=== PATIENT | female | born 1985 | race Two or more races ===

== ENCOUNTER 2022-11-04 11:56 | Emergency (ER) | payer MEDICAID, OTHER ==
[~2022-11-04] VITALS: Ht 152.4 cm; Wt 58.1 kg
[2022-11-04] MEDS ORDERED: ETOMIDATE (2MG/ML) 20ML VIAL IV ONE ×3 (12:15→13:15)
[2022-11-04 13:59] VITALS: BP 114/63
== END 2022-11-04 14:04 | disposition home or self-care (01) ==
LOC: ER 11:56
DX: S43.004A Unspecified dislocation of right shoulder joint, initial encounter (principal); X58.XXXA Exposure to other specified factors, initial encounter; Y93.89 Activity, other specified; Y92.89 Other specified places as the place of occurrence of the external cause; Y99.8 Other external cause status
CPT/HCPCS: 23650; 73020; 73030

== ENCOUNTER 2025-03-04 09:19 | Emergency (ER) | payer MEDICAID ==
[~2025-03-04] VITALS: Ht 154.9 cm; Wt 60.0 kg
--- NOTE | 2025-03-04 09:34 | ED.PDOC ---
Musculoskeletal HPI Comments 39 year old female presents to the ED for the c/c of Right Shoulder pain. Pt states she was at home reaching for a "goose egg" when she experienced a mechanical fall and landed on her right shoulder. Pt states that she is currently unable to move her extremity as a whole due to her pain. No other associated symptoms, modifiers, recent injuries or sick contacts present at this time. Chief Complaint: Upper Extremity Time Seen by MD: 09:31 Primary Care Provider: Johnny. Reviewed Notes: Nurses Notes, Medications, Allergies Allergies: Coded Allergies: NO KNOWN ALLERGIES (Unverified , 11/04/22) Information Source: Patient Mode of Arrival: Ambulatory Location: Right Extremity Location: Shoulder Timing: Hours Prehospital treatment: None Severity: Moderate Able to Move Extremity: No Bear Weight: No Pain: Moderate Hand Dominance: Right Mechanism: Twisting Circumstances: Fall Onset of Symptoms: After Trauma Symptoms: Swelling, Pain DVT Risk Factors: NONE Last Tetanus: Unknown Associated signs and symptoms: Shoulder pain Past Medical History PAST MEDICAL HISTORY: Denies 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 Family History Family History: Reviewed,noncontributory to illness Social History Smoker: Non-Smoker Alcohol: Denies ETOH Use Drugs: Denies Drug Use Lives In: Home Constitutional: denies: chills, diaphoresis, fatigue, fever, malaise, sweats, weakness, others EENTM: denies: blurred vision, double vision, ear bleeding, ear discharge, ear drainage, ear pain, ear ringing, eye pain, eye redness, hearing loss, mouth pain, mouth swelling, nasal discharge, nose bleeding, nose congestion, nose pain, photophobia, tearing, throat pain, throat swelling, voice changes, others Respiratory: denies: cough, hemoptysis, orthopnea, SOB at rest, shortness of breath, SOB with excertion, stridor, wheezing, others Cardiovascular: denies: chest pain, dizzy spells, diaphoresis, Dyspnea on exertion, edema, irregular heart beat, left arm pain, lightheadedness, palpitations, PND, syncope, others Gastrointestinal: denies: abdomen distended, abdominal pain, blood streaked bowels, constipated, diarrhea, dysphagia, difficulty swallowing, hematemesis, melena, nausea, poor appetite, poor fluid intake, rectal bleeding, rectal pain, vomiting, others Genitourinary: denies: abnormal vagina bleeding, burning, dyspareunia, dysuria, flank pain, frequency, hematuria, incontinence, pain, , vagina discharge, urgency, others Neurological: denies: dizziness, fainting, headache, left sided numbness, left sided weakness, numbness, paresthesia, pre-existing deficit, right sided numbness, right sided weakness, seizure, speech problems, tingling, tremors, weakness, others Musculoskeletal: reports: others (Right shoulder pain); denies: back pain, gout, joint pain, joint swelling, muscle pain, muscle stiffness, neck pain Integumetry: denies: bruises, change in color, change in hair/nails, dryness, laceration, lesions, lumps, rash, wounds, others Allergic/Immunocompromised: denies: Difficulty Healing, Frequent Infections, Hives, Itching, others Hematologic/Lymphatic: denies: anemia, blood clots, easy bleeding, easy bruising, swollen glands, others Endocrine: denies: excessive hunger, excessive sweating, excessive thirst, excessive urination, flushing, intolerance to cold, intolerance to heat, unexplained weight gain, unexplained weight loss, others Psychiatric: denies: anxiety, bipolar disorder, depression, hopeless, panic disorder, schizophrenia, sleepless, suicidal, others All Other Systems: Reviewed and Negative Physical Exam General Appearance: Mild Distress, Normal HEENT: Normal ENT Inspection, Pharynx Normal, TMs Normal Neck: Full Range of Motion, Non-Tender, Normal Respiratory: Chest Non-Tender, Lungs Clear, No Accessory Muscle Use, No Respiratory Distress, Normal Breath Sounds Cardiovascular: No Edema, No JVD, No Murmur, Normal Peripheral Pulses, Regular Rate/Rhythm Breast Exam: Deferred Gastrointestinal: Non Tender, No Pulsatile Mass, Normal Bowel Sounds, Soft Genitalia: Deferred Pelvic: Deferred Rectal: Deferred Extremities: No calf tenderness, Normal capillary refill, Normal inspection, Normal range of motion, Non-tender, No pedal edema Musculoskeletal : Location: Right Extremity Location: Shoulder (noticable deformity to right shoulder) Apperance: Normal Neurologic: Alert, No Motor Deficits, Normal Mood, No Sensory Deficits Cerebellar Function: Normal Reflexes: Normal Skin: Dry, Normal Color, Warm Lymphatic: No Adenopathy Was a procedure done? Was a procedure done?: Yes Sedation Sedation?: Yes Informed consent obtained: Yes Sedation start time: 13:00 Sedation end time: 13:30 Sedation total time: 30 min Reduction Indication: Dislocation Sedation: Consents obtained, Sedation as ordered Intra-articular anesthetic teddy: No Post-reduction x-ray show: Reduction, Good Alignment Informed consent obtained: Yes Risks/benefits/alt described: Yes Notes Right shoulder dislocation reduction Differential Diagnosis EXT Differential Diagnosis: Cellulitis, Fracture, Sprain, Dislocation, Contusion, Strain X-Ray, Labs, Meds, VS Vital Signs Date Time Temp Pulse Resp B/P (MAP) Pulse Ox O2 Delivery O2 Flow Rate FiO2 03/04/25 12:29 98.2 92 14 123/83 (96) 96 98.2 03/04/25 10:10 98.2 91 20 161/57 (91) 97 98.2 03/04/25 10:10 91 20 97 Room Air 03/04/25 10:09 91 20 161/57 03/04/25 09:29 98.1 94 18 130/89 (103) 98 98.1 Current Medications Medications (Trade) Dose Ordered Sig/Neeta Route Start Time Stop Time Status Last Admin Sodium Chloride 1,000 ml @ 1,000 mls/hr Q1H ONCE IV 03/04/25 09:45 03/04/25 10:44 DC 03/04/25 10:10 Ondansetron HCl (Zofran) 4 mg ONCE ONCE IV 03/04/25 09:45 03/04/25 09:46 DC 03/04/25 10:06 Morphine Sulfate 4 mg ONCE ONCE IV 03/04/25 09:45 03/04/25 09:46 DC 03/04/25 10:09 Sodium Chloride 1,000 ml @ 1,000 mls/hr Q1H ONCE IV 03/04/25 13:00 03/04/25 13:59 DC 03/04/25 13:04 PATIENT: RENAY GARZA ACCT: [id number] UNIT: [id number] : 1985 LOC: ER ROOM / BED: / AGE / SEX: 39 / F ADM STATUS: REG ER SERVICE 0 ORDERING PHYSICIAN: KIRA DUARTE MD PROCEDURE(s): RSHD2 - R SHOULDER 2+ VIEW XRAY REASON: fall ORDER NUMBER(s): [id number], ACCESSION NUMBER(s): [id number] CLINICAL INDICATION: fall, trauma, pain TECHNIQUE: XY R SHOULDER 2+ VIEW XRAY Comparison: R SHOULDER 1V XRAY on DOS: 11/04/22, R SHOULDER COMPLETE XRAY on DOS: 11/04/22 FINDINGS/IMPRESSION: : No acute fracture. Suggestion of anterior shoulder dislocation. Time of 1ST Reevaluation: 10:01 Reevaluation 1ST: Unchanged Patient Education/Counseling: Diagnosis, Treatment Family Education/Counseling: No Family Present Departure 1 Departure Time of Disposition: 14:01 (Patient had a right shoulder dislocation. Shoulder was reduced. Patient tolerated the procedure well. We will discharge patient home with outpatient follow up) Impression: Primary Impression: Dislocation of right shoulder joint Qualified Codes: S43.004A - Unspecified dislocation of right shoulder joint, initial encounter Disposition: HOME / SELF CARE / HOMELESS Condition: Stable Referrals: ENRRIQUE OLVERA MD Additional Instructions: You dislocated your shoulder. It was reduced in the ER. You were placed in a sling for comfort. For pain you can take the followinam: Ibuprofen 400mg with food Noon: Acetaminophen 1000mg 4pm: Ibuprofen 400mg with food 8pm: Acetaminophen 1000mg You were referred to an orthopedic surgeon to ensure you are healing well. Please call for an appointment within one week. If your symptoms worsen or you have any other concerns then please return to the ER. Discharged With: Self Critical Care Note Critical Care Time?: No Stability Stability form required: No Heart Score Heart Score: Heart Score Response (Comments) Value History N/A 0 EKG N/A 0 Age N/A 0 Risk Factors N/A 0 Troponin N/A 0 Total 0 I personally scribed for KIRA DUARTE MD ([email or web address]) on 03/04/25 at 09:34. Electronically submitted by Mychal Nicole ([email or web address]). I personally scribed for KIRA DUARTE MD ([email or web address]) on 03/04/25 at 10:47. Electronically submitted by Mychal Nicole ([email or web address]). KIRA DUARTE MD Mar 04, 2025 09:34
[2025-03-04] MEDS: PROPOFOL 10 MG/ML 20 ML IV ONE (09:45)
[2025-03-04] MEDS: ONDANSETRON HCL 4 MG/2 ML VIAL IV ONE (10:06)
--- NOTE | 2025-03-04 10:07 | DVH ---
CLINICAL INDICATION: fall, trauma, pain TECHNIQUE: XY R SHOULDER 2+ VIEW XRAY Comparison: R SHOULDER 1V XRAY on DOS: 11/04/22, R SHOULDER COMPLETE XRAY on DOS: 11/04/22 FINDINGS/IMPRESSION: : No acute fracture. Suggestion of anterior shoulder dislocation.
[2025-03-04] MEDS: MORPHINE SULFATE 4 MG/ML SYR/VIAL IV ONE (10:09)
[2025-03-04] MEDS: SODIUM CHLORIDE 0.9% 1,000 ML IV ONE ×2 (10:10→13:04)
[2025-03-04 12:29] VITALS: BP 123/83; PULSE 92; RESP 14; TEMP 98.2; O2SAT 96
--- NOTE | 2025-03-04 13:57 | DVH ---
EXAM: XY R SHOULDER 2+ VIEW XRAY HISTORY: post reduction COMPARISON: XY R SHOULDER 2+ VIEW XRAY on DOS: 03/04/25, R SHOULDER 1V XRAY on DOS: 11/04/22, R SHOULDE R COMPLETE XRAY on DOS: 11/04/22 TECHNIQUE: AP and scapular Y views of the right shoulder were performed. FINDINGS/IMPRESSION: 1. Interval reduction of the right glenohumeral joint. 2. No acute fracture is identified about the right shoulder.
== END 2025-03-04 14:22 | disposition home or self-care (01) ==
LOC: ER 09:19
DX: S43.004A Unspecified dislocation of right shoulder joint, initial encounter (principal); W19.XXXA Unspecified fall, initial encounter; Y93.89 Activity, other specified; Y92.009 Unspecified place in unspecified non-institutional (private) residence as the place of occurrence of the external cause; Y99.8 Other external cause status
CPT/HCPCS: 23650; 73030; 96361; 96374; 96375; 99152; 99153; 99285; J2270; J2405; J2704; J7030